=== PATIENT | male | born 1980 | race Caucasian/White ===

== ENCOUNTER 2017-06-23 21:15 | Emergency (ER) | payer OTHER ==
[2017-06-23 21:25] VITALS: BP 161/82
[2017-06-23] MEDS ORDERED: predniSONE 20 MG TABLET PO STA (21:32)
[2017-06-23] MEDS ORDERED: valACYclovir 500 MG TABLET PO STA (21:32)
--- NOTE | 2017-06-23 21:36 | ED Physician Documentation ---
PD HPI FOCAL NEURO - Stated complaint Stated Complaint: NUMB FACE - Chief complaint Chief Complaint: Neuro - History obtained from History obtained from: Patient, Family - History of Present Illness Timing - onset: Yesterday Timing - details: Abrupt onset Severity of deficit: Moderate Weakness: Face Numbness: Face Associated symptoms: No: Headache, Nausea / vomiting, Head injury Baseline status: positive: A&OX3, ambulatory, indep Similar symptoms before: Has not had sx before Recently seen: Not recently seen - Additional information Additional information: Patient is a 36 year old male with no significant past medical history who is presenting to the emergency department for facial droop. Patient states that the symptoms started yesterday. Patient denies any trauma, fevers or chills or other neurological deficits. Review of Systems Constitutional: denies: Fever, Chills Eyes: denies: Loss of vision, Photophobia Ears: denies: Ear pain, Drainage/discharge Nose: reports: Reviewed and negative Throat: reports: Reviewed and negative Cardiac: reports: Reviewed and negative Respiratory: reports: Reviewed and negative GI: denies: Nausea, Vomiting : reports: Reviewed and negative Skin: denies: Rash, Lesions Musculoskeletal: reports: Reviewed and negative Neurologic: reports: Generalized weakness, Focal weakness, Numbness. denies: Difficulty speaking, Headache, Head injury Immunocompromised: denies: Immunocompromised PD PAST MEDICAL HISTORY - Past Medical History Past Medical History: Yes Cardiovascular: Hypertension, High cholesterol Endocrine/Autoimmune: Type 1 diabetes - Past Surgical History Past Surgical History: Yes Ortho: Other - Present Medications Home Medications: Ambulatory Orders Medication Instructions Recorded Confirmed Valacyclovir HCl [Valacyclovir] 1,000 mg PO TID 7 Days tablet 06/23/17 predniSONE [Prednisone] 60 mg PO DAILY 7 Days tablet 06/23/17 - Allergies Allergies/Adverse Reactions: Allergies Allergy/AdvReac Type Severity Reaction Status Date / Time No Known Drug Allergies Allergy Verified 06/23/17 21:29 - Social History Does the pt smoke?: No Smoking Status: Never smoker Does the pt drink ETOH?: Yes Does the pt have substance abuse?: No - Immunizations Immunizations are current?: Yes PD ED PE EXPANDED - Neuro Neuro: Alert and Oriented X 3, Left face (left sided facial droop with minimal forehead involvement) NIHSS - Level of Consciousness Level of consciousness: (0) Alert, Keenly responsive LOC Questions: (0) Answers both Q's correct LOC Commands: (0) Performs both correctly - Gaze Best Gaze: (0) Normal - Visual Visual: (0) No loss - Facial Palsy Facial Palsy: (2) Partial paralysis - Motor Arms (both separate) Motor Arm (right): (0) No drift Motor Arm (left): (0) No drift - Motor Legs (both separate) Motor Leg (right): (0) No drift Motor Leg (left): (0) No drift - Limb Ataxia Limb Ataxia: (0) Absent - Sensory Sensory: (0) Normal - Best Language Best Language: (0) No aphasia - Dysarthria Dysarthria: (0) Normal - Extinction and Inattention (formally neg Extinction and inattention: (0) No abnormality - Total Score/Results Total Score/Result: 2 Results - Vitals Vitals: Vital Signs - 24 hr 06/23/17 21:21 Temperature 35.8 C L Heart Rate 78 Respiratory 16 Rate Blood Pressure 161/82 H O2 Saturation 99 Oxygen O2 Source Room air PD MEDICAL DECISION MAKING - ED course Complexity details: reviewed old records, reviewed results, re-evaluated patient , considered differential, d/w patient, d/w family ED course: Patient was seen and examined at bedside. Patient had facial droop but no other neurological findings. 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 Patient was treated with prednisone and valacyclovir. Patient and family were made aware of the diagnosis. They were given detailed discharge and follow up instructions and was stable for discharge with outpatient follow up. Departure - Departure Disposition: 01 Home, Self Care Clinical Impression: Amador's palsy Condition: Good Instructions: ED [place] Palsy Follow-Up: primary,care provider [Other] Prescriptions: predniSONE [Prednisone] 60 mg PO DAILY 7 Days tablet Valacyclovir HCl [Valacyclovir] 1,000 mg PO TID 7 Days tablet Comments: Your symptoms today are being caused by amador's palsy. It is normally self limited and should get better within the next couple of weeks. You will be started on steroids and antivirals for the next week. You should follow up with your doctor this week for re-evaluation. You may return to the emergency department at any time for new, worsening or uncontrollable symptoms.
== END 2017-06-23 21:39 | disposition home or self-care (01) ==
LOC: ED 21:15
DX: G51.0 Bell's palsy (principal); I10 Essential (primary) hypertension; E10.9 Type 1 diabetes mellitus without complications
CPT/HCPCS: 99283; A9270; J7512

== ENCOUNTER 2018-10-22 09:05 | Outpatient (CLI) | payer OTHER ==
[2018-10-22 17:12] LABS: HGB - HEMOGLOBIN 15.1 g/dL (14.0-18.0); MEAN CORPUSCULAR HEMOGLOBIN 30.6 pg (27.0-31.0); MEAN CORPUSCULAR HGB CONC 31.9 g/dL (32.0-36.0); MEAN CORPUSCULAR VOLUME 95.7 fL (80.0-94.0); MEAN PLATELET VOLUME 12.4 fL (7.4-11.4); RED BLOOD COUNT 4.94 10^6/uL (4.70-6.10); RED CELL DISTRIBUTION WIDTH 11.4 % (12.0-15.0); WHITE BLOOD COUNT 8.2 x10^3/uL (4.8-10.8)
[2018-10-22 17:30] LABS: HB2 TOTAL 16.8 g/dL; HEMOGLOBIN A1C 0.7 g/dL
[2018-10-22 17:39] LABS: ALBUMIN 4.6 g/dL (3.2-5.5); ALBUMIN/GLOBULIN RATIO 1.4 (1.0-2.2); ALKALINE PHOSPHATASE 87 IU/L (42-121); ALT ALANINE AMINOTRANSFERASE 35 IU/L (10-60); AST ASPARTATE AMINOTRANSFERASE 28 IU/L (10-42); BILIRUBIN,TOTAL 1.4 mg/dL (0.2-1.0); BUN - BLOOD UREA NITROGEN 15 mg/dL (6-20); CALCIUM 9.3 mg/dL (8.5-10.3); CARBON DIOXIDE - CO2 27 mmol/L (21-32); CHLORIDE 102 mmol/L (101-111); CHOL/HDL RATIO 3.9 (<5.0); CHOLESTEROL 181 mg/dL; CREATININE 0.9 mg/dL (0.6-1.2); GFR - MDRD 95 (>89); GLUCOSE 103 mg/dL (70-100); HDL CHOLESTEROL 46 mg/dL; LDL CHOLESTEROL,CALCULATED 117 mg/dL; LDL/HDL RATIO 2.5 (<3.6); SODIUM 140 mmol/L (135-145); TOTAL PROTEIN 7.8 g/dL (6.7-8.2); VLDL CHOLESTEROL 18 mg/dL
[2018-10-22 18:18] LABS: CREATININE,URINE 29.3 mg/dL
[2018-10-22 18:19] LABS: MICROALBUMIN,URINE < 0.2 mg/dL (0-300.0)
== END 2018-10-22 09:06 | disposition home or self-care (01) ==
LOC: LAB.S 09:05
PROVIDERS: ATTEND Internal Medicine
DX: E78.5 Hyperlipidemia, unspecified (principal); E10.9 Type 1 diabetes mellitus without complications; I10 Essential (primary) hypertension
CPT/HCPCS: 36415; 80053; 80061; 82043; 82570; 83036; 83721; 84443; 85027

== ENCOUNTER 2019-03-06 10:15 | Outpatient (CLI) | payer OTHER | END 2019-03-06 10:16 | disposition home or self-care (01) | LOC: LAB 10:15 | PROVIDERS: ATTEND Internal Medicine | DX: Z11.1 Encounter for screening for respiratory tuberculosis (principal) | CPT/HCPCS: 36415; 81599; 86480 ==

== ENCOUNTER 2019-09-09 08:48 | Outpatient (CLI) | payer OTHER ==
[2019-09-09 09:57] LABS: ALBUMIN 3.9 g/dL (3.2-5.5); BUN - BLOOD UREA NITROGEN 13 mg/dL (6-20); CALCIUM 8.8 mg/dL (8.5-10.3); CARBON DIOXIDE - CO2 26 mmol/L (21-32); CHLORIDE 100 mmol/L (101-111); CHOLESTEROL 181 mg/dL; GLUCOSE 146 mg/dL (70-100); HDL CHOLESTEROL 45 mg/dL; LDL CHOLESTEROL,CALCULATED 119 mg/dL; LDL/HDL RATIO 2.6 (<3.6); PHOSPHORUS 2.6 mg/dL (2.5-4.6); SODIUM 134 mmol/L (135-145); VLDL CHOLESTEROL 17 mg/dL
[2019-09-09 10:10] LABS: CREATININE,URINE 244.2 mg/dL; MICROALBUMIN,URINE < 0.2 mg/dL (0-300.0)
[2019-09-09 10:15] LABS: HB2 TOTAL 15.5 g/dL; HEMOGLOBIN A1C 0.59 g/dL; HEMOGLOBIN A1C % 5.6 % (4.6-6.2)
== END 2019-09-09 08:49 | disposition home or self-care (01) ==
LOC: LAB 08:48
PROVIDERS: ATTEND Student in an Organized Health Care Education/Training Program
DX: E10.9 Type 1 diabetes mellitus without complications (principal)
CPT/HCPCS: 36415; 80061; 80069; 82043; 82570; 83036; 83721

== ENCOUNTER 2019-10-05 14:54 | Outpatient (CLI) | payer OTHER | END 2019-10-05 14:55 | disposition home or self-care (01) | LOC: LAB 14:54 | PROVIDERS: ATTEND Internal Medicine | DX: Z00.00 Encounter for general adult medical examination without abnormal findings (principal) | CPT/HCPCS: 36415; 81599; 86480 ==

== ENCOUNTER 2020-04-12 08:16 | Outpatient (CLI) | payer OTHER ==
[2020-04-12 15:39] LABS: CREATININE,URINE 257.5 mg/dL; MICROALBUM/CREATININE RATIO,UR 0.8 ug/mg (<30.0); MICROALBUMIN,URINE 0.2 mg/dL (0-300.0)
[2020-04-12 16:02] LABS: BUN - BLOOD UREA NITROGEN 17 mg/dL (6-20); CALCIUM 9.2 mg/dL (8.5-10.3); CARBON DIOXIDE - CO2 27 mmol/L (21-32); CHLORIDE 100 mmol/L (101-111); CHOL/HDL RATIO 7.4 (<5.0); CHOLESTEROL 281 mg/dL; CREATININE 0.8 mg/dL (0.6-1.2); GLUCOSE 90 mg/dL (70-100); HDL CHOLESTEROL 38 mg/dL; LDL CHOLESTEROL,CALCULATED 200 mg/dL; LDL/HDL RATIO 5.3 (<3.6); SODIUM 138 mmol/L (135-145); VLDL CHOLESTEROL 43 mg/dL
[2020-04-12 20:41] LABS: HEMOGLOBIN A1c% 5.7 % (4.27-6.07)
== END 2020-04-12 08:17 | disposition home or self-care (01) ==
LOC: LAB.S 08:16
PROVIDERS: ATTEND Physician Assistant
DX: I10 Essential (primary) hypertension (principal); E78.5 Hyperlipidemia, unspecified; E10.9 Type 1 diabetes mellitus without complications
CPT/HCPCS: 36415; 80048; 80061; 82043; 82570; 83036; 83721

== ENCOUNTER 2020-08-26 09:04 | Outpatient (CLI) | payer OTHER ==
[2020-08-26 09:39] LABS: CREATININE,URINE 326.7 mg/dL; MICROALBUM/CREATININE RATIO,UR 2.4 ug/mg (<30.0); MICROALBUMIN,URINE 0.8 mg/dL (0-300.0)
[2020-08-26 09:44] LABS: BUN - BLOOD UREA NITROGEN 16 mg/dL (6-20); CALCIUM 8.9 mg/dL (8.5-10.3); CARBON DIOXIDE - CO2 27 mmol/L (21-32); CHLORIDE 102 mmol/L (101-111); CHOLESTEROL 256 mg/dL; CREATININE 1.1 mg/dL (0.6-1.2); GFR - MDRD 75 (>89); GLUCOSE 122 mg/dL (70-100); HDL CHOLESTEROL 43 mg/dL; LDL CHOLESTEROL,CALCULATED 184 mg/dL; LDL/HDL RATIO 4.3 (<3.6); POTASSIUM 3.9 mmol/L (3.5-5.0); SODIUM 137 mmol/L (135-145); TRIGLYCERIDES 145 mg/dL; VLDL CHOLESTEROL 29 mg/dL
[2020-08-26 12:48] LABS: ESTIMATED AVERAGE GLUCOSE 88 mg/dL (70-100); HEMOGLOBIN A1c% 4.7 % (4.27-6.07)
== END 2020-08-26 09:05 | disposition home or self-care (01) ==
LOC: LAB 09:04
PROVIDERS: ATTEND Physician Assistant
DX: Z00.00 Encounter for general adult medical examination without abnormal findings (principal); I10 Essential (primary) hypertension; E78.5 Hyperlipidemia, unspecified; E10.9 Type 1 diabetes mellitus without complications
CPT/HCPCS: 36415; 80048; 80061; 82043; 82570; 83036; 83721

== ENCOUNTER 2020-09-07 09:04 | Outpatient (CLI) | payer OTHER ==
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
[2020-09-07 10:27] VITALS: BP 130/91
== END 2020-09-07 09:05 | disposition home or self-care (01) ==
LOC: SC 09:04
PROVIDERS: ATTEND Nurse Practitioner Family
DX: G47.10 Hypersomnia, unspecified (principal); R06.83 Snoring; G47.8 Other sleep disorders; R06.81 Apnea, not elsewhere classified; R41.89 Other symptoms and signs involving cognitive functions and awareness; E66.9 Obesity, unspecified; Z68.39 Body mass index [BMI] 39.0-39.9, adult
CPT/HCPCS: 99203; 99212

== ENCOUNTER 2020-10-21 19:26 | Outpatient (CLI) | payer OTHER | END 2020-10-21 19:27 | disposition home or self-care (01) | LOC: SC 19:26 | PROVIDERS: ATTEND Nurse Practitioner Family | DX: G47.61 Periodic limb movement disorder (principal) | CPT/HCPCS: 95810 ==

== ENCOUNTER 2020-11-03 07:49 | Outpatient (CLI) | payer OTHER ==
--- NOTE | 2020-11-03 08:13 | SLEEP CARE CONSULTATION ---
Information from patient questionnaire entered by Killian West. I have reviewed and concur with the information entered by Killian West. This document represents the service I personally performed and the decisions made by , Carole Li ARNP. History of Present Illness Service Date and Time: 11/03/2020 0749 Initial [place] Sleepiness Scale score: 9 (in 2020) Current [place] Sleepiness Scale score: 9 Additional HPI information: FAY WEST returns for follow up and results of the recently performed polysomnography. The patient was informed of the following findings: Patient was found to have no significant sleep disordered breathing with an average AHI of 3.1 and a tio oxygen saturation of 89%. He had moderate periodic leg movements of sleep. I explained the pathophysiology behind obstructive sleep apnea. Patient does not have sleep apnea and was advised how weight gain could increase the risk of developing sleep apnea in the future. I strongly encouraged the patient to lose weight. Patient has moderate snoring. Snoring can be reduced by weight loss. Weight loss is best achieved with diet consult. Patient instructed to contact PCP for referral. Snoring can also be treated with an oral appliance from a dentist. Advised to check insurance coverage. In addition, an ENT evaluation can be do to see if other treatment is indicated. Patient counseled not drink alcohol less than 4 hours before bedtime as it can increase snoring and apnea. Patient was cautioned about risks of drowsy driving until sleepiness symptoms resolve. Sleep Study - Results Type of Sleep Study: Polysomnography Prior sleep studies: No Polysomnography/Home Sleep Study results: IMPRESSION: The quality of the study is good. The patient had reduced sleep efficiency due to a prolonged awakening in the middle of the night and poly operator awakening. The sleep architecture was relatively normal considering the first-night effect. Respiratory monitoring showed no significant sleep disordered breathing (AHI = 3.1) or hypoxia (tio oxygen saturation of 89%). Although, there was some Nish-James respiration. The patient slept mostly supine (supine AHI = 3.8; non-supine = 1.25). Snore was light in intensity. There was moderate periodic leg movement of sleep not associated with sleep fragmentation. Cardiac rhythm was normal sinus rhythm without significant arrhythmia. No abnormal behavior (parasomnia) observed during the night. CONCLUSIONS and RECOMMENDATIONS: 1. Periodic leg movement (ICD G47.61), moderate, treatment may be indicated. Clinical correlation advised. Allergies and Home Medications Home medication list reviewed: Yes Allergy and home medication list: Rosuvastatin Calcium 20 mg Losartan Potassium/HCTZ 100-25 mg Review of Systems Review of systems same as previous: Yes (no changes) Physical Exam Heart Rate: 88 O2 Saturation: 98 Height: 5 ft 6 in Weight: 244 lb Body Mass Index: 39.4 BMI Classification: Obese Impression and Plan 1. Periodic limb movement, moderate, that did not fragment patients sleep. Periodic limb movement of sleep (PLMS) is characterized by episodes of repetitive limb movements that occur during sleep and usually involve the lower limbs. The etiology is unknown but can be associated with restless leg syndrome (RLS), neuropathy, spinal cord diseases, kidney disease, rheumatological disorders, narcolepsy, obstructive sleep apnea, and REM sleep behavior disorder. Patient was advised that no treatment is needed at this time. If symptoms increase, then further evaluation is indicated. 2. Snoring but no significant sleep disordered breathing. Patient advised that often weight loss will reduce snoring as well as apnea risk. An oral appliance can also be used for snoring. This would require a dental consultation. Patient cautioned not to use other online appliances as can cause bite issues. A list of accredited dentists in [facility] and one local dentist who makes oral appliances is available in office. Patient is advised to check if insurance will cover. An ENT consult can also be helpful to determine if any other treatment is an option. * Follow up with PCP as needed for moderate PLMs * Attempt to lose weight * Avoid alcohol consumption near bedtime * The patient is cautioned about driving until sleepiness is completely resolved. * Return as needed. Counseling Topics: Weight loss health impact Visit Type: In Office Time Spent with Patient (minutes): 11 Provider Statement: I spent 100% of the Face to Face Visit with the patient with greater than 50% spent counseling the patient and coordination of care.
== END 2020-11-03 07:50 | disposition home or self-care (01) ==
LOC: SC 07:49
PROVIDERS: ATTEND Nurse Practitioner Family
DX: G47.61 Periodic limb movement disorder (principal); R06.83 Snoring; E66.9 Obesity, unspecified; Z68.39 Body mass index [BMI] 39.0-39.9, adult
CPT/HCPCS: 99212

== ENCOUNTER 2021-04-05 08:00 | Outpatient (CLI) | payer OTHER | END 2021-04-05 23:59 | disposition home or self-care (01) | LOC: LAB.S 08:00 | PROVIDERS: ATTEND Physician Assistant Medical | DX: R09.81 Nasal congestion (principal); R05.1 Acute cough; R50.9 Fever, unspecified; Z20.822 Contact with and (suspected) exposure to COVID-19 | CPT/HCPCS: 87275; 87276 ==

== ENCOUNTER 2021-12-07 13:14 | Emergency (ER) | payer OTHER ==
[2021-12-07] MEDS ORDERED: PROPARACAINE 0.5% OPHTH DROPS 15 ML RIGHTEYE STA (13:23)
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
--- OUTSIDE RECORDS SUMMARY | 2021-12-07 13:36 | EXTERNAL MEDICAL SUMMARY RPT | Continuity of Care Document ---
:1980 Author Organization [facility] Address [address] [place] [address] Phone Allergies No information. Encounters No information. Functional Status No information. Immunizations No information. Medications No information. Problems No information. Procedures No information. Results/Labs test date author facility value unit interpret ation Result panel 1 (unknown) (no date) (unknown) (unknown) (no value) (units 825 1-1 unknown) (unknown) (no date) (unknown) (unknown) >10.00 IU/mL 75334 -8 (unknown) (no date) (unknown) (unknown) >300.0 AU/mL 5244- 9 (unknown) (no date) (unknown) (unknown) 0.00 IU/mL 49423 -7 (unknown) (no date) (unknown) (unknown) 0.00 IU/mL 52292 -9 (unknown) (no date) (unknown) (unknown) 0.00 IU/mL 59354 -8 (unknown) (no date) (unknown) (unknown) 242.0 mIU/mL 94813 -9 (unknown) (no date) (unknown) (unknown) 62.2 AU/mL 19722 -5 (unknown) (no date) (unknown) (unknown) Negative (units 72798 -6 unknown) Social History No information. Vital Signs No information.
[2021-12-07 14:53] VITALS: BP 130/80
== END 2021-12-07 14:51 | disposition home or self-care (01) ==
LOC: ED 13:14
DX: T54.2X1A Toxic effect of corrosive acids and acid-like substances, accidental (unintentional), initial encounter (principal); H10.211 Acute toxic conjunctivitis, right eye; I10 Essential (primary) hypertension; E10.9 Type 1 diabetes mellitus without complications
CPT/HCPCS: 99282; J3490

== ENCOUNTER 2022-01-09 08:19 | Outpatient (CLI) | payer OTHER ==
[2022-01-09 08:43] LABS: BASOPHILS % (AUTO) 0.4 %; EOSINOPHILS # (AUTO) 0.1 10^3/uL (0.0-0.7); HCT - HEMATOCRIT 43.9 % (42.0-52.0); HGB - HEMOGLOBIN 14.4 g/dL (14.0-18.0); LYMPHOCYTES # (AUTO) 2.9 10^3/uL (1.5-3.5); LYMPHOCYTES % (AUTO) 31.1 %; MEAN CORPUSCULAR HEMOGLOBIN 30.3 pg (27.0-31.0); MEAN CORPUSCULAR HGB CONC 32.8 g/dL (32.0-36.0); MEAN CORPUSCULAR VOLUME 92.4 fL (80.0-94.0); MEAN PLATELET VOLUME 12.1 fL (7.4-11.4); MONOCYTES % (AUTO) 10.4 %; NEUTROPHILS # (AUTO) 5.3 10^3/uL (1.5-6.6); NEUTROPHILS % (AUTO) 56.5 %; PLT - PLATELET COUNT 266 10^3/uL (130-450); RED BLOOD COUNT 4.75 10^6/uL (4.70-6.10); RED CELL DISTRIBUTION WIDTH 11.5 % (12.0-15.0); WHITE BLOOD COUNT 9.4 x10^3/uL (4.8-10.8)
[2022-01-09 09:09] LABS: ALBUMIN/GLOBULIN RATIO 1.3 (1.0-2.2); ALKALINE PHOSPHATASE 90 IU/L (42-121); ALT ALANINE AMINOTRANSFERASE 30 IU/L (10-60); AST ASPARTATE AMINOTRANSFERASE 25 IU/L (10-42); BILIRUBIN,TOTAL 1.4 mg/dL (0.2-1.0); BUN - BLOOD UREA NITROGEN 18 mg/dL (6-20); CALCIUM 8.9 mg/dL (8.5-10.3); CARBON DIOXIDE - CO2 30 mmol/L (21-32); CHLORIDE 98 mmol/L (101-111); CHOL/HDL RATIO 4.3 (<5.0); CHOLESTEROL 153 mg/dL; CREATININE 1.1 mg/dL (0.6-1.2); GFR - MDRD 74 (>89); GLUCOSE 159 mg/dL (70-100); HDL CHOLESTEROL 36 mg/dL; LDL CHOLESTEROL,CALCULATED 89 mg/dL; LDL/HDL RATIO 2.5 (<3.6); SODIUM 136 mmol/L (135-145); THYROID STIMULATING HORMONE 4.51 uIU/mL (0.34-5.60); TOTAL PROTEIN 7.1 g/dL (6.7-8.2); TRIGLYCERIDES 140 mg/dL; VLDL CHOLESTEROL 28 mg/dL
[2022-01-09 11:51] LABS: ESTIMATED AVERAGE GLUCOSE 108 mg/dL (70-100); HEMOGLOBIN A1c% 5.4 % (4.27-6.07)
== END 2022-01-09 08:20 | disposition home or self-care (01) ==
LOC: LAB 08:19
PROVIDERS: ATTEND Registered Nurse
DX: I10 Essential (primary) hypertension (principal); E78.5 Hyperlipidemia, unspecified; E10.9 Type 1 diabetes mellitus without complications
CPT/HCPCS: 36415; 80053; 80061; 83036; 83721; 84443; 85025

== ENCOUNTER 2022-12-11 08:03 | Outpatient (CLI) | payer OTHER ==
[2022-12-11 08:39] LABS: BASOPHILS # (AUTO) 0.1 10^3/uL (0.0-0.1); BASOPHILS % (AUTO) 0.5 %; EOSINOPHILS # (AUTO) 0.1 10^3/uL (0.0-0.7); EOSINOPHILS % (AUTO) 0.7 %; HCT - HEMATOCRIT 44.4 % (42.0-52.0); HGB - HEMOGLOBIN 14.6 g/dL (14.0-18.0); LYMPHOCYTES # (AUTO) 2.5 10^3/uL (1.5-3.5); MEAN CORPUSCULAR HEMOGLOBIN 30.4 pg (27.0-31.0); MEAN CORPUSCULAR HGB CONC 32.9 g/dL (32.0-36.0); MEAN CORPUSCULAR VOLUME 92.5 fL (80.0-94.0); MEAN PLATELET VOLUME 11.4 fL (7.4-11.4); MONOCYTES # (AUTO) 0.8 10^3/uL (0.0-1.0); MONOCYTES % (AUTO) 7.9 %; NEUTROPHILS % (AUTO) 66.5 %; PLT - PLATELET COUNT 281 10^3/uL (130-450); RED CELL DISTRIBUTION WIDTH 11.5 % (12.0-15.0); WHITE BLOOD COUNT 10.5 x10^3/uL (4.8-10.8)
[2022-12-11 08:56] LABS: ALBUMIN 4.2 g/dL (3.2-5.5); ALBUMIN/GLOBULIN RATIO 1.5 (1.0-2.2); BILIRUBIN,TOTAL 0.7 mg/dL (0.2-1.0); CALCIUM 9.4 mg/dL (8.5-10.3); CREATININE 1.2 mg/dL (0.6-1.3); POTASSIUM 3.6 mmol/L (3.5-4.5)
[2022-12-11 11:04] LABS: ESTIMATED AVERAGE GLUCOSE 117 mg/dL (70-100); HEMOGLOBIN A1c% 5.7 % (4.27-6.07)
== END 2022-12-11 08:04 | disposition home or self-care (01) ==
LOC: LAB 08:03
PROVIDERS: ATTEND Registered Nurse
DX: I10 Essential (primary) hypertension (principal); E10.9 Type 1 diabetes mellitus without complications
CPT/HCPCS: 36415; 80053; 83036; 85025

== ENCOUNTER 2023-05-16 09:30 | Outpatient (CLI) | payer OTHER ==
--- NOTE | 2023-05-16 12:36 | Ultrasound Report ---
PROCEDURE: Testicle INDICATIONS: RIGHT TESTICULAR PAIN TECHNIQUE: Real-time scanning was performed of the scrotum and testicles, with image documentation. Color and p ulse Doppler interrogation was performed of both testicles. COMPARISON: None. FINDINGS: Right: Testicle is normal in size at 2.1 x 2.5 x 1.9 x 2.5 cm, and homogenous in echotexture. Epidi dymis is normal in overall size and morphology. No hydrocele. No varicoceles. Overlying scrotal ski n is normal in thickness. Left: Testicle is normal in size at cm, and homogeneous in echotexture. Epididymis is normal in ove rall size and morphology. No hydrocele. No varicoceles. Overlying scrotal skin is normal in thickne ss. Doppler: Color and pulse Doppler demonstrate normal and symmetric arterial flow in both testicles. No hernia is visualized. IMPRESSION: Unremarkable exam. No torsion at time exam. Intermittent torsion cannot be excluded. No inguinal hernia. Reviewed by: Abbey Montero MD on 05/16/2023 12:35 PM PST Approved by: Abbey Montero MD on 05/16/2023 12:35 PM PST Station ID: [id number]
== END 2023-05-16 09:31 | disposition home or self-care (01) ==
LOC: DI 09:30
PROVIDERS: ATTEND Registered Nurse
DX: N50.811 Right testicular pain (principal)